=== PATIENT | male | born 1960 | race Caucasian/White ===

== ENCOUNTER 2017-02-16 17:35 | Emergency (ER) | payer SELFPAY ==
[~2017-02-16] VITALS: Ht 177.8 cm; Wt 76.4 kg
[2017-02-16 17:43] VITALS: Ht 177.8 cm; Wt 76.4 kg
== END 2017-02-16 21:26 | disposition left against medical advice (07) ==
LOC: E/R 17:35
DX: Z53.21 Procedure and treatment not carried out due to patient leaving prior to being seen by health care provider (principal)